=== PATIENT | female | born 1955 | race Caucasian/White ===

== ENCOUNTER 2023-08-23 09:58 | Outpatient (RCR) | payer OTHER, SELFPAY ==
--- NOTE | 2023-08-24 17:22 | HP.PTEVAL ---
Patient's Visit Information Visit Information Visit Information: TORRIE FISHER is a 67 year old F referred to Physical Therapy by Dr. Aurelio Eagle MD with a diagnosis of B knee OA. Date of Evaluation: 08/23/23 Physical Therapist: Alfredo Dumont DPT Visit Plan Frequency: 2x /Week Plan: Start with B knee ROM, B quad/hip/core strengthening. Pt. to be seen weekly due to time constraints, but able to add in a second visit during that week if able to manage. Subjective Subjective: Pt. is here today for B knee OA. Pt reports she is scheduled to have a L TKA on September and the later next year. 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 She had a fall a few years ago resulting in a R ACL tear. Pt. has marked arthritis throughout B knee, per patient. Pt. is sleeping okay, but is having higher levels of pain with all standing, walking, stairs. Pt. reports having stiffness in B knees, but the R being worse than the L. Pt. is hopeful to increase her ROM and strength allowing for better tolerance and recovery after her future TKA. Pain R knee: Pain Intensity (Out of 10): 2 Pain Intensity Range: 1 and 8 L knee: Pain Intensity (Out of 10): 2 Pain Intensity Range: 1 and 8 Objective Objective: POSTURE: Pt. has decreased TKE in stance. Pt. slight increase in wt. shift to L side. Pt. has a general flexed posture as well. PALPATION: Pt. has medial joint line pain bilaterally. NEURO: Normal sensation and normal DTR of BLEs. Pt. is able to rise on heels and toes without issues. ROM: R knee: 0-8-102deg. L knee: 0-6-112deg. Pt. has good HS length. MMT: RLE: knee: ext 16.4#, flexion 11.3#; hip flexion 11.3#, abd 13.7#. LLE: Knee ext 16.9#, flexion 13.1#; hip: flexion 13.5#, abd 15.8#. GAIT: Pt. ambulates without AD, but has increased lateral hip sway. Pt. has decreased B knee flexion during swing and lacks TKE bilaterally during stance phase of gait. STAIRS: Pt. has increased pain in B knees with both ascending and descending with use of BHR. Balance/Special Test Scores Lower Extremity Functional Score: 20 Goals Goal 1:: LTG: Pt. to be I with HEP for aquatic exercises with focus on core/hip/quad strengthening and B knee ROM. Goal Time Frame: 4-6 Weeks Goal 2:: LTG: Pt. to have increased B knee extension to 0 deg. Goal Time Frame: 4-6 Weeks Goal 3:: LTG: pt. to have B knee flexion to at least 110deg. Goal Time Frame: 4-6 Weeks Goal 4:: LTG: pt. to have increased B LE strength increased by 5# throughout. Goal Time Frame: 4-6 Weeks Rehabilitation Potential Physical Therapy Diagnosis: Pt. has signs and symptoms consistent with B knee OA with up coming L knee TKA. Pt. would benefit from PT to work on restoring her ROM and improving her BLE strength in preparation for her upcoming TKA. Rehabilitation Potential: Good Anticipated Interventions Patient/Client Instruction: Educate patient on: Condition, Plan of Care, Risk Factors and Benefits of Fitness Program For the Purpose of:: To improve self management, To prevent re-injury, To improve ability to perform tasks related to life management and To improve tolerance to ADL's Therapeutic Exercise to Include: Strength training, Power training, Postural training, Flexibilty training, Gait and locomotor training, In an aquatic setting, Passive ROM and Dynamic Lumbar Stabilization For the Purpose of:: To decrease pain, To increase ROM, To improve nutrient delivery to tissue, To increase oxygenation perfusion, To improve muscle performance and motor function, To improve ability to perform ADL's, To improve gait and locomotor functions, To decrease soft tissue restriction and To increase flexibility/ROM Text: Thank you for the opportunity to evaluate your patient. For Medicare and Medicare HMO plans, please review the plan of care and approve it. It will need to be FAXED BACK to us at [phone] for Medicare purposes. For Medicare only, by signing this I certify the plan of care. Please let me know if there are questions or concerns regarding this plan of care. Physician Signature: Date:
--- NOTE | 2023-08-29 09:10 | HP.PT.NRP ---
Patient Information Patient Information: TORRIE FISHER was seen in my office for initial evaluation on 08/23/23. The following Plan of Care was established for this patient: POC Established Initial Frequency: 2x /Week Anticipated Interventions Patient/Client Instruction: Educate patient on: Condition, Plan of Care, Risk Factors and Benefits of Fitness Program For the Purpose of:: To improve self management, To prevent re-injury, To improve ability to perform tasks related to life management and To improve tolerance to ADL's Therapeutic Exercise to Include: Strength training, Power training, Postural training, Flexibilty training, Gait and locomotor training, In an aquatic setting, Passive ROM and Dynamic Lumbar Stabilization For the Purpose of:: To decrease pain, To increase ROM, To improve nutrient delivery to tissue, To increase oxygenation perfusion, To improve muscle performance and motor function, To improve ability to perform ADL's, To improve gait and locomotor functions, To decrease soft tissue restriction and To increase flexibility/ROM Last Seen Last Seen: This patient was last seen in our office 08/23/23. Pertinent comments regarding their Physical therapy will appear below: Pt. called today to cancel her appointments due to surgery being moved up. Pt. will be DC from PT at this point in time. At this point I will be discontinuing this patient from physical therapy. I would be happy to see this patient again in the future if found appropriate by the physician. Thank you! Alfredo Dumont, DPT Balance/Gait/Functional tests Balance/Special Test Scores Lower Extremity Functional Score: 20
== END 2023-08-23 19:00 | disposition home or self-care (01) ==
LOC: PT 09:58
PROVIDERS: PCP Nurse Practitioner Family; Referring Provider Specialist; Visit Provider Specialist
DX: M17.0 Bilateral primary osteoarthritis of knee (principal)
CPT/HCPCS: 97161